=== PATIENT | female | born 1990 | race Caucasian/White ===

== ENCOUNTER 2018-10-25 14:59 | Emergency (ER) | payer OTHER ==
[~2018-10-25] VITALS: Ht 160 cm; Wt 69.5 kg
[2018-10-25 15:00] VITALS: BP 112/48
--- NOTE | 2018-10-25 15:17 | NUR ---
URINE SENT TO LAB
[2018-10-25 15:35] LABS: APPEARANCE,URINE HAZY (CLEAR); BILIRUBIN,URINE NEGATIVE (NEGATIVE); BLOOD, URINE 2+ (NEGATIVE); COLOR,URINE YELLOW (YELLOW); LEUKOCYTE ESTERASE ,URINE 1+ (NEGATIVE); NITRITE, URINE NEGATIVE (NEGATIVE); UGLUCOSE NEGATIVE (NEGATIVE)
[2018-10-25 16:24] LABS: RBC,URINE 11-20 (MOD) /HPF (0-5)
--- NOTE | 2018-10-25 16:43 | NUR ---
PT AMBULATED TO ER BED 08
--- NOTE | 2018-10-25 16:48 | NUR ---
28 YO F BIB MOTHER W/ C/O LEFT UPPER QUAD ABD PAIN X TODAY. REPORTS SHE WAS DRINKING TEQUILA STRAIGHT LAST NIGHT AND NOW HAS STABBING PAIN. REPORTS N/V, DENIES ANY HEMATEMESIS. DENIES DIARRHEA. AAOX4, GCS 15. ABD SOFT, NON-TENDER. BOWEL SOUNDS ACTIVE X 4. HX DENIES RX DENIES
[2018-10-25 17:13] LABS: BARBITURATE, URINE NEG. ng/ml (NEG <=200); BENZODIAZEPINE, URINE NEG. ng/mL (NEG <=200); CANNABINOID, URINE NEG. ng/mL (NEG <=50); COCAINE, URINE NEG. ng/mL (NEG <=300); OPIATE, URINE NEG. ng/mL (NEG <=2000); PHENCYCLIDINE SCREEN,URINE NEG. ng/mL (NEG <=25)
[2018-10-25] MEDS ORDERED: FAMOTIDINE 20 MG TAB PO ONE (17:20)
[2018-10-25] MEDS ORDERED: METOCLOPRAMIDE 10 MG/2 ML INJ VIAL IM ONE (17:20)
[2018-10-25] MEDS ORDERED: ONDANSETRON 4 MG ODT PO ONE (17:20)
[2018-10-25] MEDS ORDERED: PROMETHAZINE 25 MG/ML VIAL IM ONE (17:20)
[2018-10-25 19:00] VITALS: BP 108/58
--- NOTE | 2018-10-25 19:00 | NUR ---
Patient discharged with v/s stable. Written and verbal after care instructions given and explained. Patient alert, oriented and verbalized understanding of instructions. Ambulatory with steady gait. All questions addressed prior to discharge. ID band removed. Patient advised to follow up with PMD. Rx of Nexium, Reglan, Pepcid given. Patient educated on indication of medication including possible reaction and side effects. Opportunity to ask questions provided and answered.
== END 2018-10-25 19:00 | disposition home or self-care (01) ==
LOC: MED 14:59
DX: K29.20 Alcoholic gastritis without bleeding (principal)
CPT/HCPCS: 80305; 81001; 81025; 87086; 96372; 99283; J2550; J2765; Q0162

== ENCOUNTER 2021-09-06 19:48 | Emergency (ER) | payer OTHER ==
[~2021-09-06] VITALS: Ht 157.5 cm; Wt 60.8 kg
[2021-09-06 19:54] VITALS: BP 129/70
--- NOTE | 2021-09-06 19:56 | NUR ---
to lobby a/w bed ambulatory
--- NOTE | 2021-09-06 21:39 | NUR ---
PT AMBULATED TO BED 12
--- NOTE | 2021-09-06 21:42 | NUR ---
31 YO F WITH C/C OF INTERM CHEST PAIN, BACK PAIN AND COUGH X2 DAYS. DENIES SOB AND DIFFICULTY BREATHING. COUGH IS PRODUCTIVE- GREEN SPUTUM. LUNG SOUNDS CLEAR THROUGHOUT. CHEST PAIN NONRAD. AT BEDSIDE EXAMINING PT. HX: ASTHMA RX:ALBUTEROL NKDA
--- NOTE | 2021-09-06 21:55 | NUR ---
COVID SWAB COLLECTED AND TAKEN TO LAB.
[2021-09-06 22:00] VITALS: BP 129/70
--- NOTE | 2021-09-06 22:00 | NUR ---
Patient discharged with v/s stable. Written and verbal after care instructions given and explained. Patient verbalized understanding. Ambulatory with steady gait. All questions addressed prior to discharge. Advised to follow up with PMD.
== END 2021-09-06 22:00 | disposition home or self-care (01) ==
LOC: MED 19:48
DX: R05.9 Cough, unspecified (principal); Z20.822 Contact with and (suspected) exposure to COVID-19; R07.9 Chest pain, unspecified; R21 Rash and other nonspecific skin eruption; J45.909 Unspecified asthma, uncomplicated; Z98.890 Other specified postprocedural states
CPT/HCPCS: 71045; 93005; 99285